=== PATIENT | female | born 1935 | race Caucasian/White ===

== ENCOUNTER 2017-07-10 11:29 | Emergency (ER) | payer OTHER ==
[~2017-07-10] VITALS: Ht 157.5 cm; Wt 60.8 kg
[~2017-07-10 11:29] MED LIST: ALLEGRA180 MG PO; AUGMENTIN 875875 M1 PO; CALAN; CATAPRES-TTS 10.1 M1 TD; CLONIDINE0.1 PO; CLOPIDOGREL; CRESTOR; CRESTOR10 MG PO; HYDROXYZINE HCL25 M1 PO; HYDROXYZINE HCL25 M2 PO; HYDROXYZINE HCL50 MG PO; KLOR-CON 1010 MEQ PO; MECLIZINE HCL25 M1 PO; MICARDIS HCT 81 EAC1 PO; MICARDIS40 MG PO; PLAVIX 75 MG TA75 M1 PO; PROPAFENONE 15150 MG PO; RANITIDINE 150150 M1 PO; SYNTHROID25 MCG PO; TEKTURNA300 MG PO; TOPROL XL25 MG PO; VERAPAMIL HCL360 MG PO; XARELTO10 MG PO; ZANTAC 150MG T150 MG PO
[2017-07-10 11:58] LABS: ABSOLUTE BASOPHILS 0.1 thou/uL (0.0-0.2); ABSOLUTE LYMPHOCYTES 0.9 thou/uL (0.8-5.3); ABSOLUTE MONOCYTES 0.8 thou/uL (0.0-1.2); ABSOLUTE NEUTROPHILS 6.2 thou/uL (1.6-8.1); EOSINOPHILS 0.5 %; HEMATOCRIT 28.3 % (37.0-47.0); HEMOGLOBIN 8.6 gm/dL (12.0-15.0); LYMPHOCYTES 11.4 %; MCH 25.1 pg (26.0-34.0); MCHC 30.4 g/dL (28.0-37.0); MCV 82.6 fL (80.0-100.0); MONOCYTES 10.3 %; MPV 8.4 fl. (7.2-11.1); NUCLEATED RBCS 0 /100WBC; PLATELET COUNT* 339 thou/uL (150-400); POLYS 76.8 %; RBC 3.43 mil/uL (4.20-5.00); RDW-CV 18.2 % (10.5-14.5)
[2017-07-10] MEDS ORDERED: FLONASE 0.05%50 MCG NASAL (11:59)
[2017-07-10] MEDS ORDERED: COREG6.25 MG PO (11:59)
[2017-07-10] MEDS ORDERED: SYNTHROID150 MCG PO (11:59)
[2017-07-10] MEDS ORDERED: LASIX 40 MG TAB40 M2 PO (12:02)
[2017-07-10] MEDS ORDERED: PROTONIX40 M1 PO (12:03)
[2017-07-10] MEDS ORDERED: ASPIR 8181 MG PO (12:03)
[2017-07-10] MEDS ORDERED: CHLORTHALIDONE25 MG PO (12:04)
[2017-07-10] MEDS ORDERED: LIPITOR40 MG PO (12:04)
[2017-07-10] MEDS ORDERED: HYDRALAZINE 2525 MG PO (12:04)
[2017-07-10 12:10] LABS: APTT 31.1 Seconds (25.0-31.3); INR 1.7; PROTIME 16.7 Seconds (9.20-11.50)
[2017-07-10 12:17] LABS: ANION GAP 17 mmol/L (7-16); BUN 52 mg/dL (7-18); CALCIUM 8.6 mg/dL (8.5-10.1); CHLORIDE 94 mmol/L (98-107); CO2 18 mmol/L (21-32); CREATININE 2.7 mg/dL (0.6-1.3); SODIUM 129 mmol/L (136-145)
[2017-07-10 12:19] LABS: GLUCOSE 519 mg/dL (70-99)
[2017-07-10 12:23] LABS: ALBUMIN 2.6 g/dL (3.4-5.0); ALKALINE PHOSPHATASE 127 U/L (46-116); CK-MB MASS < 0.5 ng/mL (<0.5-3.6); LIPASE 127 U/L (73-393); MAGNESIUM 2.4 mg/dL (1.8-2.4); NT-PRO BRAIN NAT PEPTIDE 4496 pg/mL (<300); SGOT 38 U/L (15-37); SGPT 32 U/L (30-65); TOTAL BILIRUBIN 0.7 mg/dL (<0.1-1.0); TOTAL PROTEIN 6.7 g/dL (6.4-8.2); TROPONIN-I LEVEL <0.06 ng/mL (<0.06)
[2017-07-10 12:38] LABS: URINE BILIRUBIN NEGATIVE (Negative); URINE BLOOD NEGATIVE (Negative); URINE CLARITY CLEAR; URINE COLOR YELLOW; URINE GLUCOSE-RANDOM NEGATIVE (Negative); URINE KETONES NEGATIVE (Negative); URINE LEUKOCYTES-REFLEX NEGATIVE (Negative); URINE NITRITE-REFLEX NEGATIVE (Negative); URINE PROTEIN TRACE (Negative); URINE UROBILINOGEN 0.2 E.U./dl (0.2-1.0)
[2017-07-10 15:01] VITALS: BP 0/0
--- NOTE | 2017-07-11 14:26 | EKG ---
[place] [address] ELECTROCARDIOGRAM REPORT Name: LEA STERN Room: [facility]#: [id number] Admission: 07/10/17 Attend Phys: Discharge: 07/10/17 Date of : 33 Report #: [id number] THIS REPORT FOR: //name// [facility] ED Test Date: 2017-07-10 Test Time: 11:36:38 Pat Name: LEA STERN Department: Room: Gender: F Mold Filler: IGNACIO : 1935 Requested By: Brad Garay Order Number: [id number] MD: Aditya Artis Measurements Intervals [place] Rate: 54 P: [place]: QRS: 52 QRSD: 147 T: 157 QT: 551 QTc: 523 Interpretive Statements Atrial fibrillation LVH with secondary repolarization abnormality Probable anterior infarct, age indeterminate Prolonged QT interval Baseline wander in lead(s) V4 Compared to ECG 11/11/2014 07:16:59 Left ventricular hypertrophy now present Early repolarization now present Myocardial infarct finding now present Prolonged QT interval now present Left bundle-branch block no longer present Electronically Signed On 07-11-2017 14:26:37 CDT by Aditya Artis [email or web address] <ELECTRONICALLY SIGNED> By: Aditya Artis MD, FACC 07/11/17 1426 1136 [id number] Aditya Artis MD, FAC /EPI
== END 2017-07-10 12:48 ==
LOC: M.ERS 11:29
PROVIDERS: Family Medicine
DX: I46.9 Cardiac arrest, cause unspecified (principal); I10 Essential (primary) hypertension; F41.9 Anxiety disorder, unspecified; E11.9 Type 2 diabetes mellitus without complications; E03.9 Hypothyroidism, unspecified; Z90.710 Acquired absence of both cervix and uterus; Z86.73 Personal history of transient ischemic attack (TIA), and cerebral infarction without residual deficits; Z88.8 Allergy status to other drugs, medicaments and biological substances; Z91.041 Radiographic dye allergy status; Z88.1 Allergy status to other antibiotic agents; Z91.011 Allergy to milk products